=== PATIENT | male | born 1930 | race Caucasian/White ===

== ENCOUNTER 2021-04-06 11:08 | Emergency (ER) | payer OTHER ==
[~2021-04-06] VITALS: Ht 177.8 cm; Wt 62.1 kg
--- NOTE | 2021-04-06 11:23 | NUR ---
TO ER BED 2, BIB [facility] FROM [facility],LEFT HIP PAIN, S/P GLF WHILE WORKING IN HIS GARAGE.
--- NOTE | 2021-04-06 11:37 | NUR ---
[employer] AT BEDSIDE
--- NOTE | 2021-04-06 11:45 | NUR ---
LAB AT BEDSIDE
[2021-04-06 12:06] LABS: BASOPHILS % (AUTO) 0.5 % (0.0-2.0); EOSINOPHILS % (AUTO) 1.5 % (0.0-6.0); HEMATOCRIT 39 % (39-51); LYMPHOCYTES # (AUTO) 1.4 K/uL (0.8-4.8); LYMPHOCYTES % (AUTO) 17.2 % (20.0-44.0); MEAN CORPUSCULAR HGB CONC 34 g/dl (31.0-36.0); MEAN CORPUSCULAR VOLUME 93 fL (80-96); MONOCYTES # (AUTO) 0.6 K/uL (0.1-1.30); MONOCYTES % (AUTO) 7.9 % (2.0-12.0); NEUTROPHILS # (AUTO) 5.9 K/uL (1.8-8.9); NEUTROPHILS % (AUTO) 72.9 % (43.0-81.0); PLATELET COUNT (AUTO) 161 K/uL (150-450); RED BLOOD CELL COUNT(AUTO) 4.15 MIL/uL (4.5-6.0); WHITE BLOOD COUNT (AUTO) 8.1 K/uL (4.3-11.0)
[2021-04-06 12:11] LABS: CALCIUM, SERUM 8.3 mg/dL (8.5-10.1); CREATININE 1.2 mg/dL (0.6-1.3); POTASSIUM 4.5 mmol/L (3.5-5.1)
--- NOTE | 2021-04-06 12:38 | NUR ---
CALLED JUANPABLO PEREZ MD WILL CALL US BACK.
[2021-04-06] MEDS ORDERED: MORPHINE SULFATE INJ 2 MG/ML DISP.SYRIN ONE (13:00)
[2021-04-06] MEDS ORDERED: MORPHINE SULFATE INJ 2 MG/ML DISP.SYRIN IV ONE (13:00)
[2021-04-06 14:15] VITALS: BP 106/62
--- NOTE | 2021-04-06 14:36 | NUR ---
JUANPABLO CALLED PT ACCEPTED TO [facility] [address] [phone] FOR REPORT PRN WILL TRANSPORT... PRN HAS BEEN HERE SINCE 1430 AND ARE ABOUT TO TRANSPORT PT
== END 2021-04-06 15:16 | disposition short-term general hospital (02) ==
LOC: ER 11:21
DX: S72.142A Displaced intertrochanteric fracture of left femur, initial encounter for closed fracture (principal); S72.112A Displaced fracture of greater trochanter of left femur, initial encounter for closed fracture; W18.30XA Fall on same level, unspecified, initial encounter; Y92.89 Other specified places as the place of occurrence of the external cause; N40.0 Benign prostatic hyperplasia without lower urinary tract symptoms; R94.31 Abnormal electrocardiogram [ECG] [EKG]; Z20.822 Contact with and (suspected) exposure to COVID-19
CPT/HCPCS: 36415; 71045; 73503; 80048; 85025; 85730; 87426; 93005; 96374; 99285; C9803; J2270; 73502